=== PATIENT | female | born 1980 | race Caucasian/White ===

== ENCOUNTER 2017-08-20 20:45 | Emergency (ER) | payer OTHER ==
[2017-08-20 21:06] VITALS: BP 137/76
[2017-08-20] MEDS ORDERED: OXYCODONE-ACETAMINOPHEN 5-325 MG TABLET PO ONE (22:24)
[2017-08-20] MEDS ORDERED: CLINDAMYCIN HCL 150 MG CAPSULE PO ONE (22:24)
--- NOTE | 2017-08-20 22:27 | ER Document Report ---
HPI - HPI Patient complains to provider of: facial pain Onset: Other - 10 days Onset/Duration: Persistent Quality of pain: Achy Pain Level: 4 Context: Patient presents complaining of right facial pain with swelling. Patient denies any Associated Symptoms: Other - facial pain. denies: Fever Exacerbated by: Denies Relieved by: Denies Similar symptoms previously: No Recently seen / treated by doctor: No - ROS ROS below otherwise negative: Yes Systems Reviewed and Negative: Yes All other systems reviewed and negative - CONSTITUTIONAL Constitutional: DENIES: Fever, Chills - EENT EENT: DENIES: Sore Throat, Ear Pain, Eye problems - NEURO Neurology: REPORTS: Headache - RESPIRATORY Respiratory: DENIES: Trouble Breathing, Coughing - GASTROINTESTINAL Gastrointestinal: DENIES: Nausea, Patient vomiting - MUSCULOSKELETAL Musculoskeletal: DENIES: Extremity pain, Back Pain, Neck Pain - DERM Skin Color: Normal Past Medical History - General Information source: Patient - Social History Smoking Status: Current Every Day Smoker Smoking Education Provided: Yes Frequency of alcohol use: None Drug Abuse: None Lives with: Family Family History: Reviewed & Not Pertinent Patient has suicidal ideation: No Patient has homicidal ideation: No - Medical History Medical History: Negative Renal/ Medical History: Denies: Hx Peritoneal Dialysis Past Surgical History: Reports: Hx Breast Surgery, Hx Tonsillectomy, Hx Tubal Ligation, Other - tummy tuck Vertical Provider Document - CONSTITUTIONAL Agree With Documented VS: Yes Exam Limitations: No Limitations General Appearance: WD/WN, No Apparent Distress - INFECTION CONTROL TRAVEL OUTSIDE OF THE [place] IN LAST 30 DAYS: No - HEENT HEENT: Atraumatic, Normocephalic. negative: Pharyngeal Exudate, Pharyngeal Tenderness, Pharyngeal Erythema, Tympanic Membrane Red, Tympanic Membrane Bulging Mouth Diagram: 1 - tenderness 2 - tenderness Notes: Dental tenderness, no drainable abscess, no trismus, no sublingual or submental swelling. - NECK Neck: Normal Inspection, Supple - RESPIRATORY Respiratory: Breath Sounds Normal, No Respiratory Distress O2 Sat by Pulse Oximetry: 100 - CARDIOVASCULAR Cardiovascular: Regular Rate, Regular Rhythm - MUSCULOSKELETAL/EXTREMETIES Musculoskeletal/Extremeties: MAEW - NEURO Level of Consciousness: Awake, Alert, Appropriate Motor/Sensory: No Motor Deficit - DERM Integumentary: Warm, Dry, No Rash Course - Re-evaluation Re-evalutation: 08/21/17 Smoking cessation handout provided to patient at discharge. Controlled substance database review - Vital Signs Vital signs: Temp Pulse Resp BP Pulse Ox 98.3 F 86 18 137/76 H 100 08/20/17 21:05 08/20/17 21:05 08/20/17 21:05 08/20/17 21:05 08/20/17 21:05 Discharge - Discharge Clinical Impression: Pain, dental Condition: Stable Disposition: HOME, SELF-CARE Instructions: Clindamycin ([facility]), Oral Narcotic Medication ([facility]), Toothache ([facility] ) Additional Instructions: Return immediately for any new or worsening symptoms Followup with your primary care provider, call tomorrow to make a followup appointment follow up with a dental care provider Prescriptions: Clindamycin HCl [Cleocin 300 mg Capsule] 300 mg PO TID #21 capsule Naproxen [Naprosyn 250 Nmg Tablet] 1 tab PO BID #14 tablet Oxycodone HCl/Acetaminophen [Percocet 5-325 mg Tablet] 1 tab PO ASDIR PRN #12 tablet PRN Reason: Forms: Smoking Cessation Education Referrals: [facility] [Provider Group] - Follow up as needed
== END 2017-08-20 22:36 | disposition home or self-care (01) ==
LOC: ER 20:45
DX: K08.89 Other specified disorders of teeth and supporting structures (principal); R51 Headache; R22.0 Localized swelling, mass and lump, head; F17.200 Nicotine dependence, unspecified, uncomplicated
CPT/HCPCS: 99282

== ENCOUNTER 2019-11-09 21:20 | Emergency (ER) | payer SELFPAY ==
[2019-11-09 21:59] LABS: HEMATOCRIT 38.9 % (36.0-47.0); HEMOGLOBIN 13.8 g/dL (12.0-15.5); MEAN CORPUSCULAR HEMOGLOBIN 32.3 pg (27.0-33.4); MEAN CORPUSCULAR HGB CONC 35.5 g/dL (32.0-36.0); MEAN CORPUSCULAR VOLUME 91 fl (80-97); PLATELET COUNT 201 10^3/uL (150-450); RED BLOOD COUNT 4.27 10^6/uL (3.72-5.28); RED CELL DISTRIBUTION WIDTH 12.3 % (11.5-14.0); WHITE BLOOD COUNT 12.1 10^3/uL (4.0-10.5)
--- NOTE | 2019-11-09 22:04 | ER Document Report ---
ED Cardiac - General Chief Complaint: Chest Pain > 30 Stated Complaint: CHEST PAIN Time Seen by Provider: 11/09/19 21:46 Notes: Patient is a 39-year-old female with history of anxiety who presents the emergency department with a chief complaint of chest pain. Patient states that her chest pain came on all of a sudden at 1830 this evening. Patient states that it feels like "a belt is tightening around my chest." Reports that the pain was radiating to her left neck and down left arm. States that she was not doing anything specific when the pain started. She was given 0.4 nitro via EMS. Gave herself 325 aspirin. Patient states that she has never had this before. Patient is a current everyday smoker and smokes a pack of cigarettes a day. Patient sister has history of an NH at 37 years old. Patient also has a history of lupus. TRAVEL OUTSIDE OF THE [place] IN LAST 30 DAYS: No - Related Data Allergies/Adverse Reactions: Penicillins Allergy (Verified 03/22/19 11:02) Past Medical History - Social History Smoking Status: Current Every Day Smoker Family History: Reviewed & Not Pertinent Patient has suicidal ideation: No Patient has homicidal ideation: No Renal/ Medical History: Denies: Hx Peritoneal Dialysis Past Surgical History: Reports: Hx Breast Surgery, Hx Tonsillectomy, Hx Tubal Ligation, Other - tummy clauck Review of Systems - Review of Systems Notes: REVIEW OF SYSTEMS: CONSTITUTIONAL : Denies recent illness. Denies recent unintentional weight loss. Denies fever, chills, or sweats. EENT: Denies eye, ear, throat, or mouth pain, discharge, or symptoms. Denies nasal or sinus congestion. CARDIOVASCULAR: See HPI. RESPIRATORY: Denies shortness of breath, cough, congestion, difficulty breathing, or wheezing. GASTROINTESTINAL: Denies nausea, vomiting, and diarrhea. Denies abdominal pain. Denies constipation. GENITOURINARY: Denies difficulty urinating, burning, blood in urine, urgency or frequency. MUSCULOSKELETAL: Denies neck and back pain. Denies joint pain or swelling. SKIN: Denies rash, itchiness, or lesions HEMATOLOGIC : Denies easy bruising or bleeding. LYMPHATIC: Denies swollen, painful, enlarged glands. NEUROLOGICAL: Denies no numbness or tingling denies weakness. Denies headache. Denies altered mental status. Denies alteration in speech. PSYCHIATRIC: Denies stress, anxiety, alteration in sleep patterns, or depression. All other systems reviewed and negative. Physical Exam - Vital signs Vitals: Pulse Ox 100 11/09/19 21:20 - Notes Notes: PHYSICAL EXAMINATION: GENERAL: Appears well, healthy, well-nourished, no acute distress. HEAD: Normocephalic, atraumatic. EYES: PERRL, conjunctiva normal, all extraocular movements intact, sclera nonicteric ENT: Moist mucous membranes. NECK: Supple, no noticeable swelling, redness, rash. Normal range of motion. LUNGS: Equal breath sounds bilaterally and clear to auscultation. No wheezes rales or rhonchi. CARDIOVASCULAR: S1-S2, regular rate, regular rhythm. Radial pulses 2+, normal. ABDOMEN: Normoactive bowel sounds. Soft, nontender, no guarding, no rebound tenderness, and no masses palpated. EXTREMITIES: Normal strength and range of motion, no pitting or edema. No cyanosis. NEUROLOGICAL: Moves all extremities upon command. Strength 5/5 in all ext remities. PSYCH: Normal mood, normal affect. SKIN: Warm, dry. No rash, lesions, ulcerations noted. Normal skin turgor. Course - Re-evaluation Re-evalutation: 11/09/19 22:25 Differential diagnosis for the patient's chest pain includes ischemic chest pain (STEMI, NSTEMI, or unstable angina), pulmonary embolism, aortic dissection, pericarditis, chest wall pain. HEART Score: History:1 EKG: Age:0 Risk Factors: 1 Troponin:1 Total: 3 Second troponin elevated a little. I informed the patient that due to her family history of her sister having an NH in the past, and be important to have her observed overnight. She is in agreement with this plan. 11/10/19 02:[address] Knutson, the hospitalist, and he wants the patient to have another troponin drawn and reevaluate. Patient states that her pain is still better, but she still feels uncomfortable. We will give her Zofran and morphine. 11/10/19 04:39 Patient's third troponin is negative. Patient will follow-up with cardiology. I advised her to take an 81 mg aspirin daily, along with Pepcid. She is in agreement with this plan. Follow-up precautions were given. Verbal discharge instructions were given to the patient. They verbalized understanding. They are stable for discharge. - Vital Signs Vital signs: Temp Pulse Resp BP Pulse Ox 11 L 104/60 99 11/10/19 03:01 11/10/19 03:00 11/10/19 03:01 - Laboratory Result Diagrams: 11/09/19 21:50 11/09/19 21:50 Laboratory results interpreted by me: 11/09/19 21:50 WBC 12.1 H Abs Neuts (Manual) 9.1 H - EKG Interpretation by Me Additional EKG results interpreted by me: 11/09/19 23:40 Sinus rhythm. Heart rate 95. VT 144; QRS 76; QT 352; QTc 443. No ST elevations or depressions noted. Discharge - Discharge Clinical Impression: Chest pain Qualifiers: Chest pain type: unspecified Qualified Code(s): R07.9 - Chest pain, unspecified Condition: Stable Disposition: HOME, SELF-CARE Additional Instructions: You were seen today for chest pain. The exact cause of your pain is unclear. However, based on your cardiac enzyme testing, chest x-ray, and EKG it does not appear that it is from an immediately life-threatening cause at this time. Although your testing here is normal is critical that you follow-up with your primary care physician for continued evaluation of this chest pain and possible stress testing. I recommended you see your physician within the next 24-48 hours to be evaluated for consideration of a stress test. Please return to emergency department immediately if you have worsening of your chest pain, shortness of breath, vomiting, become unable to exert yourself due to pain or difficulty breathing, you pass out, or have any pain that radiates into your arms, jaw, or back. Please also return if you have any additional symptoms that are concerning to you. I highly recommend you take [id number] 81 mg baby aspirin daily due to your family risk factors. Also take [id number] Pepcid, 20 mg twice a day. Referrals: OMAR ZAMORA MD [ACTIVE STAFF] - Follow up in 1 week RHONA LARA MD [ACTIVE STAFF] - Follow up in 1 week TRE CORTEZ MD [EMERITUS] - Follow up in 1 week
[2019-11-09] MEDS ORDERED: MORPHINE SULFATE 10 MG/ML INJ IV ONE (22:06)
[2019-11-09 22:21] LABS: ABSOLUTE LYMPHOCYTES# (MANUAL) 1.7 10^3/uL (0.5-4.7); ABSOLUTE MONOCYTES # (MANUAL) 1.2 10^3/uL (0.1-1.4); BASOPHILS % (MANUAL) 0 % (0-2); EOSINOPHILS % (MANUAL) 1 % (0-6); LYMPHOCYTES % (MANUAL) 14 % (13-45); MONOCYTES % (MANUAL) 10 % (3-13); SEGMENTED NEUTROPHILS % (MAN) 75 % (42-78); TOTAL CELLS COUNTED 100
[2019-11-09 22:22] LABS: PLATELET COMMENT ADEQUATE; RBC MORPHOLOGY COMMENT NORMO-CYTIC/CHROMIC
[2019-11-09 22:26] LABS: ALBUMIN 3.8 g/dL (3.5-5.0); ALKALINE PHOSPHATASE 55 U/L (38-126); ANION GAP 9 (5-19); ASPARTATE AMINO TRANSFERASE 22 U/L (14-36); BILIRUBIN,DIRECT 0.2 mg/dL (0.0-0.4); BILIRUBIN,TOTAL 0.5 mg/dL (0.2-1.3); BLOOD UREA NITROGEN 12 mg/dL (7-20); CALCIUM 8.8 mg/dL (8.4-10.2); CARBON DIOXIDE 25 mmol/L (22-30); CHLORIDE 107 mmol/L (98-107); GLUCOSE 84 mg/dL (75-110); POTASSIUM 3.6 mmol/L (3.6-5.0); TOTAL PROTEIN 6.6 g/dL (6.3-8.2)
--- NOTE | 2019-11-09 22:40 | RADIOLOGY REPORT (SQ) ---
EXAM DESCRIPTION: XR CHEST 1 VIEW COMPLETED DATE/TME: 11/09/2019 21:30 CLINICAL HISTORY: 39 years, Female, chest pain COMPARISON: None. NUMBER OF VIEWS: One TECHNIQUE: Single frontal view of the chest was obtained portably LIMITATIONS: None. FINDINGS: Cardiac and mediastinal contours are normal. Lungs are clear. No pleural effusion or pneumothorax. IMPRESSION: No acute disease. copyright 2010 [email or web address]- All Rights Reserved
[2019-11-09] MEDS ORDERED: METOCLOPRAMIDE HCL INJ/PF 10 MG/2 ML SDV IV ONE (22:48)
[2019-11-09] MEDS ORDERED: FAMOTIDINE 20 MG TABLET PO ONE (23:46)
[2019-11-09] MEDS ORDERED: SUCRALFATE 1 GM TABLET PO ONE (23:46)
[2019-11-10] MEDS ORDERED: MORPHINE SULFATE 10 MG/ML INJ IV ONE (02:59)
[2019-11-10] MEDS ORDERED: ONDANSETRON HCL INJ/PF 4 MG/2 ML SDV IV ONE (02:59)
[2019-11-10 05:08] VITALS: BP 103/77
--- NOTE | 2019-11-10 12:30 | EKG REPORT ---
SEVERITY:- OTHERWISE NORMAL ECG - SINUS RHYTHM LOW VOLTAGE IN FRONTAL LEADS : Confirmed by: Alexus Jara MD 10-Nov-2019 12:30:02
== END 2019-11-10 05:18 | disposition home or self-care (01) ==
LOC: ER 21:20
DX: R07.9 Chest pain, unspecified (principal); F17.210 Nicotine dependence, cigarettes, uncomplicated; Z88.0 Allergy status to penicillin; Z82.49 Family history of ischemic heart disease and other diseases of the circulatory system
CPT/HCPCS: 93005; 96376; 99285; 96374; 96375; 36415; 83690; 85025; 80053; 84484; 71045; 93010; J2765; J2270 ×2; J2405